=== PATIENT | female | born 1950 | race Caucasian/White ===

== ENCOUNTER 2024-05-31 14:27 | Outpatient (CLI) | payer MEDICARE | END 2024-05-31 14:28 | disposition home or self-care (01) | LOC: CSHMAMMO 14:27 | PROVIDERS: ATTEND Student in an Organized Health Care Education/Training Program | DX: Z12.31 Encounter for screening mammogram for malignant neoplasm of breast (principal); M81.0 Age-related osteoporosis without current pathological fracture; M85.851 Other specified disorders of bone density and structure, right thigh | CPT/HCPCS: 77063; 77067; 77080 ==